=== PATIENT | female | born 1940 | race Caucasian/White ===

== ENCOUNTER 2016-07-29 13:00 | Inpatient (IN) | payer MEDICARE, OTHER ==
[~2016-07-29] VITALS: Ht 165.1 cm; Wt 81.0 kg
--- NOTE | ~2016-07-29 | OR ---
PATIENT'S NAME: ALAINA GARZA [facility] AGE: 76 Y [address] ROOM: [place] [address] LOCATION: G3N ADMIT DATE: 08/05/2016 OR/Procedure Report DISCHARGE DATE: FAMILY PHYSICIAN: NIKOLAY SEGOVIA ATTENDING PHYSICIAN: FREDDY BABCOCK SURGEON: Freddy Babcock MD VETERINARIAN EPIDEMIOLOGIST: Kem Maharaj PA-C A certified PA was necessary during the entire case. The PA helped with positioning the limb in space, soft tissue retraction, osteophyte removal, implant placement, as well as wound closure. DATE OF PROCEDURE: 08/05/2016 PREOPERATIVE DIAGNOSIS: Left glenohumeral osteoarthritis. POSTOPERATIVE DIAGNOSES: 1. Left glenohumeral osteoarthritis. 2. There is long head of the biceps tendinopathy. PROCEDURE: 1. Left total shoulder arthroplasty using the Tornier Simpliciti system. 2. Open biceps tenodesis. ANESTHESIA: General. ESTIMATED BLOOD LOSS: 250 mL. COMPLICATIONS: None. SPECIMENS: None. DRAINS: None. INDICATIONS: Alaina Garza is a 76-year-old female. She presented to my clinic with left shoulder pain. X-ray showed a significant spur there at the humeral head neck junction. She had a limited range of motion. MRI was obtained, which showed the cuff was intact with significant degenerative changes on both sides of the glenohumeral joint. At this point, I talked to her about continued conservative treatment. I talked to her about injections, anti-inflammatories, and physical therapy. She had already had a total shoulder arthroplasty on the contralateral side and had good outcomes. For that reason, we talked about the risk of bleeding, infection, damage to surrounding structures, stiffness, potential need for future surgery, instability, as well as the continued pain. We also talked about the risk of general anesthesia including heart attack, stroke, pneumonia, and . She PATIENT'S NAME: ALAINA GARZA [facility] AGE: 76 Y [address] ROOM: [place] [address] LOCATION: [facility] ADMIT DATE: 08/05/2016 OR/Procedure Report DISCHARGE DATE: FAMILY PHYSICIAN: NIKOLAY SEGOVIA ATTENDING PHYSICIAN: FREDDY BABCOCK ultimately elected to proceed with surgery. DESCRIPTION OF PROCEDURE: A surgical marking pen was used to correctly identify the left shoulder as the surgical site. She was back to the operating suite and placed supine on the OR table. She underwent general anesthesia. Time-out was called by myself. During the time-out, the patient, the procedure to be performed, the dosing of the preoperative antibiotics, and the postoperative plan were reviewed by everyone in the room. The patient was then positioned in a beach chair position. All bony prominences were well padded. Left upper extremity was prepped and draped in a standard sterile fashion. Surgical marking pen was used to kody out the deltopectoral interval. A 10 blade scalpel was used to dissect down through the deltopectoral interval. Cephalic vein was identified. The cephalic vein was retracted laterally with the deltoid. The clavipectoral fascia was incised. I retracted the conjoint tendon medially. I identified the upper 1 cm of the pectoralis major tendon and this was released. I then identified the long head of the biceps. The anterior humeral circumflex vessels were ligated. I then released the long head of the biceps. I used #2 FiberWire in a figure-of- eight fashion to perform a soft tissue tenodesis to the upper border of that pectoralis major tendon. I then peeled the subscapularis off the lesser tuberosity with gentle external rotation. The humeral head was dislocated. I scrutinized the greater tuberosity and felt like the supraspinatus was intact. I placed a tag stitch in the subscapularis. I then removed the osteophytes. I went ahead and I used a sagittal saw to create the anatomic cut matching her own version. I then used a amprice system. There was good cancellous bone with no cyst. I used a sizing guide and I felt like she was a size 2. I then used a sizing guide and passed the guide pin into the lateral cortex. I then reamed to get concentric reaming there of the humeral head. I then impacted a trial size 2 nucleus. I then turned my attention to the glenoid. As the glenoid was exposed, I performed a 360-degree labral excision and a capsular release. I then removed any remaining cartilage off the glenoid. I used the trials to determine the curvature as well as to determine the size. I then used the trial. I placed the central guide pin and then reamed concentrically down to a nice subchondral bone. I then drilled the central peg. I then used the guide and drilled the three peripheral pegs. I then placed the trial small quarter lock glenoid with a curvature of 30 degrees onto the glenoid and there was no locking horse phenomenon. Hemostasis was achieved. I irrigated three peripheral pegs. I then cemented the three peripheral pegs using a Stevenson syringe and Simplex P bone cement with tobramycin. I then impacted the Aequalis PerFORM CortiLoc pegged glenoid model S30 into position after I had bone grafted the central peg. I held in position as the cement cured. I felt comfortable with this glenoid preparation. I then turned my attention back to the humerus. I placed a trial Simpliciti 52 mm x 18 mm humeral head onto the nucleus. I reduced the shoulder and took it through range of motion. Had very good soft tissue balance and there was about 50% spring block noted. The PATIENT'S NAME: ALAINA GARZA [facility] AGE: 76 Y [address] ROOM: [place] [address] LOCATION: [facility] ADMIT DATE: 08/05/2016 OR/Procedure Report DISCHARGE DATE: FAMILY PHYSICIAN: NIKOLAY SEGOVIA ATTENDING PHYSICIAN: FREDDY BABCOCK patient had good range of motion with no instability. For that reason, the final implants were opened on the back table. Six drill holes using a 2 mm drill bit were placed in the lesser tuberosity and I passed #2 FiberWire through those six drill holes. I then impacted the size 2 nucleus as well as the humeral head into position. I again reduced the glenohumeral joint and took the arm through range of motion, had the same range of motion and the same stability. I felt comfortable with this construct. I then repaired the subscapularis back down to the lesser tuberosity using the #2 FiberWire stitches that were placed through those bone tunnels in a mattress fashion. This did reduce the subscapularis very nicely. I thoroughly irrigated the wound and confirmed that hemostasis was achieved. I then closed the fascia with an 0 Vicryl in [id number] fashion. I then closed the skin with a 2- 0 Vicryl, followed by a 3-0 Monocryl, followed by lalit. Dressings in the form of Xeroform, 4x4s, and Tegaderm tape were applied. She was placed into a sling and transferred to the recovery room in stable condition where she was found to be neurovascularly intact. MD KOURTNEY MERCEDES/jackson /[id number] d: 08/06/16 0126 t: 08/20/16 1841, OPERATIVE SUMMARY
--- NOTE | ~2016-07-29 | HP ---
[facility] 76 [facility] [address] ROOM: [place] [address] LOCATION: [facility] ADMIT DATE: 08/05/2016 History & Physical DISCHARGE DATE: FAMILY PHYSICIAN: NIKOLAY SEGOVIA ATTENDING PHYSICIAN: FREDDY BABCOCK DATE OF SERVICE: HISTORY OF PRESENT ILLNESS: This pleasant patient is seen by me for postoperative care. She had a left total shoulder replacement done on 08/[address] Freddy Babcock. Overnight, she said she had a fair amount of pain. She has some nausea this morning and some vomiting. She denies chest pain. I told her I would follow her for medical illness and pain management. CURRENT MEDICATIONS: On admission: 1. Prilosec 20. 2. Meloxicam 15. ALLERGIES: MORPHINE AND RELATED COMPOUNDS. FAMILY HISTORY: Negative for problems with bleeding disorder or general anesthesia. SOCIAL HISTORY: Does not smoke at this time. PAST SURGICAL HISTORY: Previous Operations: 1. Status post right total shoulder. 2. Cholecystectomy. 3. Gastric sleeve. 4. Bilateral breast implants. 5. Appendectomy. 6. Bilateral knee replacements. 7. Excision of redundant skin in the bilateral forearms. 8. She has had surgery on her feet. REVIEW OF SYSTEMS: Positive for osteoarthritis, migraine, Raynaud syndrome, hypertension, and posttraumatic stress disorder. She is a nonsmoker. PHYSICAL EXAMINATION: [facility] 76 Y [address] ROOM: [place] [address] LOCATION: [facility] ADMIT DATE: 08/05/2016 History & Physical DISCHARGE DATE: FAMILY PHYSICIAN: NIKOLAY SEGOVIA ATTENDING PHYSICIAN: FREDDY BABCOCK VITAL SIGNS: Per nurse's notes. GENERAL: Pleasant blonde haired female who appears younger than her stated age. HEENT: Shows pupils react to light. TMs not visualized. Posterior pharynx is clear. Mucous membranes are dry. NECK: Unremarkable. Thyroid is not enlarged. LUNGS: Clear. HEART: No murmur. Regular rhythm. BREASTS: Not done. ABDOMEN: Benign. EXTREMITIES: Dressing over the left shoulder and left arm in a sling. NEUROLOGIC: Cranial nerves intact. No peripheral nerve abnormality. MENTAL STATUS: Normal postop cognition. She is anxious about her health based on her nausea and vomiting. ASSESSMENT: 1. Chronic left shoulder pain status post left total shoulder replacement on 08/05/2016. 2. Postoperative nausea and vomiting. 3. Generalized osteoarthritis. 4. History of Raynaud syndrome. 5. History of migraine. 6. History of hypertension, essential. 7. History of post-traumatic stress disorder. 8. Prior operations: As described above. 9. Gastroesophageal reflux disease. 10. Allergy to morphine. PLAN: Treat nausea and vomiting and follow daily. MD MICHAEL AUSTIN/nadial /[id number] D: [id number] T: 714 HISTORY & PHYSICAL
--- NOTE | ~2016-07-29 | DS ---
PATIENT'S NAME: DEONNA REYES [facility] AGE: 76 Y [address] ROOM: [address] [place], [place] [address] LOCATION: G3 ADMIT DATE: 08/05/2016 Discharge Summary DISCHARGE DATE: 08/07/2016 FAMILY PHYSICIAN: NIKOLAY SEGOVIA ATTENDING PHYSICIAN: Freddy Troy FINAL DIAGNOSIS: End-stage left glenohumeral osteoarthritis. PROCEDURES PERFORMED DURING THE HOSPITAL STAY: Left total shoulder arthroplasty and an open subpectoral biceps tenodesis. CONSULTATIONS: 1. Dr. Rodrick Tirado. 2. Occupational Therapy. 3. Physical Therapy. HOSPITAL COURSE: The patient was admitted to the hospital. The patient was taken back for the above-mentioned operation. For complete details of the operation, please see the dictated operative report. Postoperatively, the patient was placed in a sling in the recovery room. She was found to be neurovascularly intact. She underwent regional nerve block provided by Anesthesia. She was transferred up to the floor. She was started on a clear liquid diet which was advanced as tolerated. Occupational Therapy as well as Physical Therapy were consulted as was the primary care physician for medical management. She had both IV pain medications in the form of Dilaudid as well as oral pain medications in the form of Dilaudid and OxyContin and muscle relaxant in the form of Valium. On postop day #1, she was afebrile and vital signs were stable. She was still getting pain control from the regional block. The biggest issue was that she had significant nausea and was not able to keep any food down overnight from the time of surgery to postop day #1. Nausea medications were changed and throughout postop day #1, she was unable to tolerate food. By postop day #2, she was up with physical therapy. She was walking in the hallway. She was able to demonstrate pendulums in a very pain-free manner. The dressing was clean, dry, and intact. She had no evidence of any signs of infection. Overall, her pain was controlled on her oral Dilaudid and her oral OxyContin, and she met all requirements for discharge. She was discharged home with the following discharge instructions: 1. Regular diet. 2. Nonweightbearing in the left upper extremity. 3. Sling at all times. 4. Pendulums three times a day. 5. Follow up in two weeks for staple removal. 6. Call sooner if she has any questions or concerns. 7. Pain control with p.o. Dilaudid. 8. Pain control with OxyContin on a q.12 hour basis for the first 10 days. PATIENT'S NAME: DEONNA REYES [facility] AGE: 76 Y [address] ROOM: [place] [address] LOCATION: [facility] ADMIT DATE: 08/05/2016 Discharge Summary DISCHARGE DATE: 08/07/2016 FAMILY PHYSICIAN: NIKOLAY SEGOVIA ATTENDING PHYSICIAN: Freddy Troy MD KOURTNEY MERCEDES/jackson /[id number] d: 08/08/16211 t: 08/20/16 1843, DISCHARGE SUMMARY
--- NOTE | ~2016-07-29 | OR ---
PATIENT'S NAME: ALAINA GARZA [facility] AGE: 76 Y [address] ROOM: [place] [address] LOCATION: [facility] ADMIT DATE: 08/05/2016 OR/Procedure Report DISCHARGE DATE: FAMILY PHYSICIAN: NIKOLAY SEGOVIA ATTENDING PHYSICIAN: FREDDY BABCOCK SURGEON: Freddy Babcock MD ARCGIS DEVELOPER: Kem Maharaj PA-C. A certified PA was necessary during the entire case. The autopsy assistant helped with soft tissue retraction, positioning the limb in space, and wound closure. DATE OF PROCEDURE: 08/05/2016 PREOPERATIVE DIAGNOSIS: Left shoulder glenohumeral osteoarthritis. POSTOPERATIVE DIAGNOSIS: Left shoulder glenohumeral osteoarthritis. PROCEDURE: 1. Left total shoulder arthroplasty using the Tornier simplicity system. 2. Open biceps tenodesis. ANESTHESIA: General endotracheal anesthesia. ESTIMATED BLOOD LOSS: 250 mL. DRAINS: None. SPECIMENS: None. COMPLICATIONS: None. INDICATIONS: Alaina Garza is a 76-year-old female. She is status post a right total shoulder arthroplasty on the contralateral side. She presented to my clinic with left shoulder pain. X-rays revealed osteophytes there over the inferior aspect of the humeral head. We talked about continued conservative treatment with injections, anti-inflammatories, and physical therapy. We also talked to her about the role of surgery in the form of a shoulder arthroplasty. An MRI was obtained, which showed the rotator cuff was intact, and I felt like she would be a good candidate for an anatomic total shoulder. She elected to proceed. The risks of bleeding, infection, instability, potential need for future surgery, as well as continued shoulder pain were reviewed. We also talked to her about the risks of general anesthesia including, but not limited to heart attack, stroke, pneumonia, and . DESCRIPTION OF PROCEDURE: A surgical marking pen was used to correctly PATIENT'S NAME: ALAINA GARZA [facility] AGE: 76 Y [address] ROOM: [place] [address] LOCATION: [facility] ADMIT DATE: 08/05/2016 OR/Procedure Report DISCHARGE DATE: FAMILY PHYSICIAN: NIKOLAY SEGOVIA ATTENDING PHYSICIAN: FREDDY BABCOCK identify the left shoulder as the surgical site. Consent was signed and dated. She was taken back to the operating suite and placed supine on the OR table. She underwent general endotracheal induction and intubation. A time- out was called by myself. During the time-out, the patient, the procedure to be performed, the dosing of the preoperative antibiotics, and the postoperative plan were reviewed by everyone in the room. She was then placed in a lazy beach chair position. All bony prominences were well padded. The left upper extremity was then prepped and draped in a standard sterile fashion. We marked out the bony anatomy with a surgical marking pen. I then made an 8 cm incision over the deltopectoral interval. I dissected down through the skin and subcutaneous tissue. The cephalic vein was identified. It was retracted laterally with the deltoid. The clavipectoral fascia was elevated. The bursa of the subscapularis was excised. I then identified the anterior humeral circumflex vessels, and they were ligated. The long head of the biceps was identified. I released the upper 1 cm of the pectoralis major tendon. After the pectoralis major tendon up to 1 cm had been removed, I then placed a [id number] stitch through the biceps and performed a soft tissue biceps tenodesis through the pectoralis major tendon with a #2 FiberWire. I then released the biceps. I used the biceps in the bicipital groove to remove the subscapularis off the lesser tuberosity. I then released the biceps off the supraglenoid tubercle. A gentle external rotation allowed me to expose the humeral head. The supraspinatus footprint was then passed without any evidence of any disruption. I then went ahead and with a rongeur, I removed the osteophytes. A freehand cut matching the patient's anatomy was performed using a sagittal saw. I then used the AmberWave system to take measurements and felt like a size 2 nucleus was appropriate. There were no significant cystic changes, and there was good cancellous bone there within the humeral head. Using the guide, I passed the guide pin through the lateral cortex. I then reamed to get concentric circles. I then impacted a size 2 trial nucleus with a cover. I then gained exposure to my glenoid. I did a 360-degree labral excision as well as a capsular release. I then determined the radius of curvature of the glenoid after the cartilage had been removed. I then used a size small with a 30-degree curvature sizing guide and I placed a central PEG. I then concentrically reamed over the guidepin. I then drilled the central PEG. I then drilled my peripheral pegs using the guide. I then achieved good hemostasis. A trial glenoid was placed into position, and there was no locking horse phenomenon. I felt comfortable with the procedure. I then went ahead and used Simplex P bone cement with tobramycin. I mixed it in a bowl on the back table and then placed it into a Stevenson syringe. I cemented the three peripheral pegs. The final Aequalis performed quarter lock plate of the glenoid, model F30, with bone grafting there in that central PEG was performed and impacted into place. I held it with pressure until the cement had cured. I then turned my attention back towards the humerus. I placed a trial size 52 mm x 18 mm simplicity standard humeral head into place. I reduced the shoulder and took it through range of motion. I felt like there PATIENT'S NAME: ALAINA GARZA [facility] AGE: 76 Y [address] ROOM: [address] [address] LOCATION: [facility] ADMIT DATE: 08/05/2016 OR/Procedure Report DISCHARGE DATE: FAMILY PHYSICIAN: NIKOLAY SEGOVIA ATTENDING PHYSICIAN: FREDDY BABCOCK R was a good soft tissue balance. There was no overstuffing of the joint. She had 50% spring back through the glenohumeral joint as I took the arm through range of motion. For that reason, I then removed the trial components of the humerus. Six drill holes were placed in the lesser tuberosity, and I passed six #2 FiberWire stitches through the drill holes. I then impacted the final simplicity size 2 nucleus as well as the simplicity 52 mm x 18 mm standard humeral head into position. I again took it through range of motion and it felt like there was appropriate spring back of 50% and that there was good range of motion without any instability noted. I then repaired the subscapularis with six #2 FiberWire stitches in a mattress fashion. I then irrigated the wound once again. I then closed the fascia with 0 Vicryl in [id number]. I closed the skin with 2-0 Vicryl, followed by running 3-0 Monocryl followed by lalit. Dressings in the form of 4x4's and Tegaderm were applied. She was placed into a sling and transferred to the recovery room in stable condition where she was found to be neurovascularly intact. MD KOURTNEY MERCEDES/jackson /[id number] d: t: 08/06/16 0111, OPERATIVE SUMMARY
[2016-07-29] MEDS ORDERED: PRILOSEC20 MG PO (13:02)
[2016-07-29] MEDS ORDERED: MOBIC15 MG PO (13:02)
[2016-07-29] MEDS ORDERED: AMOXICILLIN500 MG PO (13:17)
--- NOTE | 2016-08-05 17:53 | NUR ---
Significant Event: Received from PACU at 1540. 4th 1/2 hr at 1825. Dressing dry and intact to left shoulder. Left arm numb and tingling due to block. Lt arm in sling. Up to BR x1 and voided. Valium 2.5mg at 1658 for c/o migraine headache. Zofran 4mg at 1719 for nausea. Follow up:
--- NOTE | 2016-08-06 05:10 | NUR ---
Significant Event: Alert/oriented x3. Pain controlled effectively with scheduled Oxycontin ER at 2199. Zofran effective for nausea at 2047. Voids well per bathroom, 1 assist. Arm in sling, ice applied. VSS, CSM WNL. Headache at beginning of shift, better, has slept most of night. Vitals Q4H. Foot pumps. Follow up:
[2016-08-06] MEDS ORDERED: OXYCONTIN EXTEN10 MG PO (09:05)
[2016-08-06] MEDS ORDERED: VALIUM5 MG PO (09:06)
[2016-08-06] MEDS ORDERED: DILAUDID 2MG(HYD2 MG PO (09:06)
[2016-08-06] MEDS ORDERED: ECOTRIN325 MG PO (09:07)
--- NOTE | 2016-08-06 12:10 | NUR ---
Introduced self/role to patient. Lives in [facility] with her . She didn't anticipate any needs or need for DME. She is thinking she will stay until tomorrow, was given that option. Added my name to her marker board, will continue to follow.
--- NOTE | 2016-08-06 17:21 | NUR ---
Significant Event: PT ALERT AND ORIENTED. UP IN THE ROOM WITH MINIMAL ASSIST TO THE BATHROOM. VOIDS WELL. LAST PAIN PILL AT 1715.ICE TO SHOUDLER AND BACK OF NECK. SLEEVE TO LT ARM. PT HAD NAUSEA THIS AM BUT BETTER THIS AFTERNOON. Follow up:
--- NOTE | 2016-08-07 05:23 | NUR ---
Significant Event: Alert/oriented x3. Plans to go home today. Pain relieved effectively with scheduled Oxycontin at 2100. 1 assist ambulation. Voided well per bathroom. Ice applied behind neck and arm. VSS, CSM WNL. Follow up:
== END 2016-08-07 13:12 | disposition disaster alternative care site (69) | DRG 483 ==
LOC: G3N 08-05 08:22
PROVIDERS: ADMIT Orthopaedic Surgery Sports Medicine
DX: M19.012 Primary osteoarthritis, left shoulder (principal); K21.9 Gastro-esophageal reflux disease without esophagitis
CPT/HCPCS: C1713; C1776; J0690; J1100; J1170; J1885; J2001; J2250; J2405; J2550; J3010; J7120